=== PATIENT | female | born 1980 | race Caucasian/White ===

== ENCOUNTER 2020-06-27 16:40 | Emergency (ER) | payer OTHER ==
[~2020-06-27] VITALS: Ht 165.1 cm; Wt 70.3 kg
[2020-06-27 16:53] VITALS: Ht 165.1 cm; Wt 70.3 kg
[2020-06-27 17:37] LABS: BASOPHIL % 0.7 % (0.2-1.3); PLATELET COUNT 367 x10^3mcL (179-408); RED CELL DISTRIBUTION WIDTH 12.8 % (12.3-17.7)
[2020-06-27 17:50] LABS: CALCIUM 8.6 mg/dL (8.5-10.1); CARBON DIOXIDE 31.8 mmol/L (21-32); CHLORIDE SERUM 103 mmol/L (98-107); CREATININE SERUM 0.7 mg/dL (0.6-1.0); GFR1 > 60 mL/min; GLUCOSE SERUM 107 mg/dL (74-106); POTASSIUM SERUM 3.7 mmol/L (3.5-5.1); SODIUM SERUM 141 mmol/L (136-145)
[2020-06-27 17:55] LABS: ALKALINE PHOSPHATASE 78 U/L (46-116); ALT/SGPT 23 U/L (14-59); AST/SGOT 9 U/L (15-37); BILIRUBIN TOTAL 0.3 mg/dL (0.20-1.00); LIPASE 157 IU/L (73-393); TOTAL PROTEIN, SERUM 7.5 g/dL (6.4-8.2)
[2020-06-27 18:21] VITALS: BP 145/74
== END 2020-06-27 18:21 | disposition home or self-care (01) ==
LOC: ED 16:40
PROVIDERS: Emergency Medicine
DX: K80.20 Calculus of gallbladder without cholecystitis without obstruction (principal)